=== PATIENT | female | born 1965 | race Caucasian/White ===

== ENCOUNTER → 2020-08-13 13:47 | Outpatient (CLI) | payer BC, SELFPAY ==
[2020-08-13 15:13] LABS: Absolute Neutrophil Count 4.9 X10^3/uL (2.0-7.7); Basophil# 0.04 X10^3/uL; Basophil% 0.4 % (0-1); Eosinophil# 0.14 X10^3/uL; Eosinophils% 1.5 % (0-5); Hematocrit 44.2 % (37-47); Hemoglobin 14.4 g/dL (12.0-15.0); Lymphocyte % 37.4 % (19-41); Mean Corp Hgb Conc 32.6 g/dL (32-36); Mean Corpuscular Volume 95.1 fL (81-99); Monocyte# 0.65 X10^3/uL; Monocyte% 7.1 % (0-10); NRBC Flagged by Analyzer 0 % (0-5); Neutrophil # 4.85 X10^3/uL (2.7-7.7); Neutrophil % 53.4 % (47-70); POSITIVE MORPHOLOGY YES; Platelet Count 234 K/mm3 (150-450); RBC Distribution Width CV 12.3 % (11.6-14.6); RBC Distribution Width SD 42.8 fl (35.1-43.9); Red Blood Count 4.65 M/mm3 (4.2-5.4); White Blood Count 9.1 K/mm3 (4.4-11.0)
[2020-08-13 15:15] LABS: Differential Indicated SCAN CRITERIA MET
[2020-08-13 15:43] LABS: Platelet Estimate ADEQUATE (ADEQ); Reactive Lymphocyte 1+; Red Cell Morphology NORM C+C NORMAL (NORM C&C)
[2020-08-13 16:10] LABS: AST(SGOT) 26 U/L (15-37); Alanine Aminotransfer ALT/SGPT 24 U/L (13-56); Albumin, Serum 4.1 g/dL (3.2-5.0); Alkaline Phosphatase 110 U/L (45-117); Anion Gap 7 (5-15); BUN 18 mg/dL (7-18); BUN/Creat Ratio 22.4 RATIO (10-20); Bilirubin, Direct 0.26 mg/dL (0.00-0.30); Calcium,Total 9.4 mg/dL (8.5-10.1); Chloride 103 mmol/L (98-107); EST Glomerular Filtration Rate 78 mL/min (>60); Est Glom Filt Rate - Afr Amer 95 mL/min (>60); Globulin 3.7 g/dL (2.2-4.2); Glucose 93 mg/dL (74-106); Protein, Total 7.8 g/dL (6.4-8.2); Sodium Level 137 mmol/L (136-145)
[2020-08-14 09:08] LABS: Hepatitis B Surface Antibody Non-Reactive; Hepatitis B Surface Antigen Non-Reactive (Nonreactive); Hepatitis C Antibody Non-Reactive (Nonreactive)
[2020-08-17 04:10] LABS: QNTFERON TB Mitogen Value > 10.00 IU/mL (.); QNTFERON TB Nil Value 0.02 IU/mL (.); QNTFERON TB1+ Ag Value 0.04 IU/mL (.); QNTFERON TB2+ Ag Value 0.02 IU/mL (.)
[2020-08-17 13:50] LABS: Hepatitis B Core Ab Total Negative (Negative); QNTIFERON TB Positive Criteria Negative (Negative)
== END ==
PROVIDERS: PCP Family Medicine; Referring Provider Dermatology; Visit Provider Dermatology
DX: L40.0 Psoriasis vulgaris (principal)
CPT/HCPCS: 36415; 80048; 80076; 85025; 86480; 86704; 86706; 86803; 87340

== ENCOUNTER 2021-08-06 14:24 | Outpatient (CLI) | payer BC, SELFPAY ==
[2021-08-06 17:42] LABS: Absolute Lymphocyte Count 3.59 X10^3/uL (0.83-4.51); Absolute Neutrophil Count 4.5 X10^3/uL (2.0-7.7); Basophil# 0.06 X10^3/uL; Basophil% 0.6 % (0-1); Eosinophil# 0.18 X10^3/uL; Eosinophils% 1.9 % (0-5); Hematocrit 43.9 % (37-47); Hemoglobin 14.4 g/dL (12.0-15.0); Lymphocyte # 3.59 X10^3/ul (0.83-4.51); Mean Corp Hgb Conc 32.8 g/dL (32-36); Mean Corpuscular Hgb 31.9 pg (27.0-32.0); Mean Corpuscular Volume 97.1 fL (81-99); Mean Platelet Vol. 10.7 fl (6.2-12.0); Monocyte# 1.09 X10^3/uL; Monocyte% 11.5 % (0-10); NRBC Flagged by Analyzer 0 % (0-5); Neutrophil % 47.8 % (47-70); POSITIVE MORPHOLOGY YES; Platelet Count 243 K/mm3 (150-450); RBC Distribution Width CV 12.5 % (11.6-14.6); RBC Distribution Width SD 44.7 fl (35.1-43.9); Red Blood Count 4.52 M/mm3 (4.2-5.4); White Blood Count 9.4 K/mm3 (4.4-11.0)
[2021-08-06 18:09] LABS: Differential Indicated SCAN CRITERIA MET
[2021-08-06 18:10] LABS: Anisocytosis 1+; Atypical Lymphocyte 2+ %; Hypochromasia RARE; Platelet Estimate ADEQUATE (ADEQ); Red Cell Morphology N CHROM NORMAL (NORM C&C)
[2021-08-06 18:11] LABS: Macrocytosis 1+; Ovalocyte RARE
[2021-08-06 18:32] LABS: AST(SGOT) 24 U/L (15-37); Alanine Aminotransfer ALT/SGPT 31 U/L (13-56); Albumin, Serum 3.9 g/dL (3.2-5.0); Alkaline Phosphatase 112 U/L (45-117); Anion Gap 7 (5-15); BUN 14 mg/dL (7-18); BUN/Creat Ratio 19.5 RATIO (10-20); Calcium,Total 9.4 mg/dL (8.5-10.1); Chloride 106 mmol/L (98-107); Creatinine, Serum 0.72 mg/dL (0.55-1.02); EST Glomerular Filtration Rate 89 mL/min (>60); Est Glom Filt Rate - Afr Amer 107 mL/min (>60); Glucose 89 mg/dL (74-106); Protein, Total 7.9 g/dL (6.4-8.2); Sodium Level 138 mmol/L (136-145)
[2021-08-07 13:27] LABS: Pathologist Review Reviewed
[2021-08-09 06:11] LABS: QNTFERON TB Mitogen Value > 10.00 IU/mL (.); QNTFERON TB Nil Value 0 IU/mL (.); QNTFERON TB1+ Ag Value 0 IU/mL (.); QNTFERON TB2+ Ag Value 0 IU/mL (.)
[2021-08-09 10:02] LABS: QNTIFERON TB Positive Criteria Negative (Negative)
== END 2021-08-06 23:59 | disposition short-term general hospital (02) ==
LOC: MTLAB 14:25
PROVIDERS: PCP Family Medicine; Referring Provider Dermatology; Visit Provider Dermatology
DX: L40.0 Psoriasis vulgaris (principal); Z79.899 Other long term (current) drug therapy
CPT/HCPCS: 36415; 80053; 85025; 86480

== ENCOUNTER 2022-08-20 15:16 | Emergency (ER) | payer BC, SELFPAY ==
[2022-08-20 15:17] VITALS: BP 155/140; PULSE 72; RESP 20; TEMP 36.9; O2SAT 97; BMI 29.2
--- NOTE | 2022-08-20 15:42 | CT_ITS ---
STUDY: CT ABDOMEN AND PELVIS WITHOUT CONTRAST REASON FOR EXAM: Female, 57 years old. Kidney Stone RADIATION DOSAGE (If Supplied By Facility): CTDIvol = ( 8.68 ) mGy, DLP = ( 409.83 ) mGycm TECHNIQUE: Transaxial images were obtained from the dome of the diaphragm to the symphysis pubis without oral contrast, and without intravenous contrast. Sagittal and coronal images were reconstructed. Individualized dose optimization techniques were used for this CT. COMPARISON: None. FINDINGS: Minor atelectasis within the dependent portion of the lungs.. The visualized portions of the heart are within normal limits. Normal liver. Normal gallbladder and extrahepatic biliary system. Normal spleen. Normal pancreas. Normal right adrenal. Small hypoattenuated left adrenal most likely benign.. Tiny nonobstructing right renal calculus without evidence for hydronephrosis or mass. Nonobstructing left renal calculi without evidence for hydronephrosis or mass The ureters are incompletely visualized in their entirety however there is no definite stones identified within the visualized portions of the ureters. Possibility of a very tiny nonobstructing calculus cannot be entirely excluded. If strong clinical suspicion for obstructive uropathy repeat scan with contrast would be useful for assessment Normal visualized stomach. Mild ileus with diffuse fecal retention in the colon.. No evidence for acute appendicitis. Atherosclerotic changes of the aorta without evidence for aneurysm. Normal inferior vena cava. Normal retroperitoneum. Incompletely distended thick walled bladder likely of no significance. Small calcified intrauterine fibroid Normal abdominal wall. Lumbar spine demonstrates degenerative change CT/Abdomen/Pelvis without Cont IMPRESSION: Bilateral nephrolithiasis without evidence for renal obstruction or definitive evidence for ureteral calculus.. Electronically Signed: Kehinde Murphy MD at 16:47 EST ,
--- NOTE | 2022-08-20 15:42 | ED.VIS.FEGU ---
HPI HPI - Female History of Present Illness Chief Complaint: Flank Pain Narrative Narrative: 57-year-old female presented with left flank pain. Patient states he has a history of kidney stones just she believes she is seeing Dr. Laguna in the past. She does have history of obstructive stones and needed lithotripsy and stenting. Patient states pain started last evening at about 1030. She took Tylenol and used a heating pad and her pain is not resolved. Patient states that she was at urgent care today and they checked a urinalysis and did not note any blood or infection in her urine. She was given Toradol while she was there and she states her pain is very much improved on arrival. Patient denies any urinary complaints. No fevers PFSH PFSH Medical History (Updated 08/20/22 @ 17:[address] Avila Cardozo DO) Hx of renal calculi Home Medications hydrocodone-acetaminophen 5-325mg 5mg-325mg 1 tab PO Q4H PRN PRN Pain 3 days #12 TABLETS 08/20/22 [Rx Last Taken Unknown] ondansetron 4 mg disintegrating tablet 4 mg PO Q8H PRN PRN Nausea #14 tabs 08/20/22 [Rx Last Taken Unknown] tamsulosin 0.4 mg capsule (Flomax) 0.4 mg PO DAILY 08/20/22 [History Last Taken Unknown] Allergy/AdvReac Type Severity Reaction Status Date / Time No Known Allergies Allergy Verified 08/20/22 15:18 Social History Smoking Status: Never smoker ROS ROS ED Review of Systems ROS Unobtainable: Denies due to encephalopathy Constitutional Constitutional ED: Denies chills or fever(s) Eyes Eyes: Denies change in vision ENT ENT ED: Denies rhinorrhea or sore throat Cardiovascular Cardiovascular: Denies chest pain or palpitations Respiratory/Chest Respiratory/Chest: Denies cough or dyspnea Gastrointestinal Gastrointestinal: Reports nausea and other Details: Left flank pain Genitourinary Genitourinary ED: Denies dysuria or hematuria Integumentary Denies abscess or Abrasions Neurologic Neurologic: Denies headache(s) Psychiatric Psychiatric: Denies anxiety or depression EXAM Physical Exam Const Vital Signs: 08/20/22 15:17 08/20/22 16:52 Temperature 98.4 F Temperature Source Temporal Pulse Rate 72 71 Respiratory Rate 20 H 18 Blood Pressure 155/140 H 151/67 H Blood Pressure Mean 145 95 Pulse Ox 97 94 Oxygen Delivery Method Room Air Room Air Positive well nourished General Appearance ED: JENNIFER SMART Reports moist mucous membranes Eyes PERRL and EOMs intact bilaterally Neck no lymphadenopathy Resp normal respiratory effort Auscultation: Negative for rales, rhonchi or wheezes Cardio regular rate and regular rhythm GI normal to inspection, nondistended, normoactive bowel sounds Back/Spine General Back: CVA tenderness Neuro oriented x3 and CN's II-XII intact bilaterally Sensorium / Orientation: alert and oriented to person Motor Exam: strength 5/5 throughout Psych mental status grossly normal Skin no rashes or lesions noted MDM MDM MDM Narrative Medical decision making narrative: Patient seen and evaluated on arrival for left flank pain. She states she had a urinalysis performed at the urgent care prior to coming here which showed no occult blood or evidence of infection. I will need to repeat this as I do not have the results of this test. CBC will be obtained to check for blood cell count, H&H, didfferental. BMP to assess renal function and electrolytes. Patient declines analgesia at this time I did membership counselor her if she needs something more to please pressure quality. She states the Toradol is helping currently. She denies nausea at this time. Will obtain CT without contrast to assess for kidney stone CBC shows no evidence of leukocytosis. Hemoglobin hematocrit are stable. Platelets are normal. Renal function electrolytes appear to be within normal limits. Urinalysis negative for infection and is occult blood negative. Patient was initially medicated with Toradol and after pain returned she was given morphine. CT abdomen pelvis without contrast shows bilateral nonobstructing kidney stones. There is no evidence of struct ureteral stone. I spoke with Dr. Laguna who is on-call for urology. He did feel as if he could follow her out as an outpatient. Patient prescribed Greene and Zofran for home. Return precautions discussed. Impression: 1. Left flank pain 2. History of kidney stones 3. Nausea Lab Data Attestation: I reviewed the patient's lab results. Labs: Laboratory Results - last 24 hr 08/20/22 08/20/22 08/20/22 15:43 15:43 17:00 WBC 9.3 RBC 4.23 Hgb 13.8 Hct 41.2 MCV 97.4 MCH 32.6 H MCHC 33.5 RDW Std Deviation 43.8 RDW Coeff of Javier 12.2 Plt Count 216 MPV 9.9 Immature Gran % (Auto) 0.200 Neut % (Auto) 56.5 Lymph % (Auto) 34.2 [place] % (Auto) 7.9 Eos % (Auto) 0.6 Baso % (Auto) 0.6 Absolute Neuts (auto) 5.2 Absolute Lymphs (auto) 3.16 Nucleated RBC % 0 Differential Comment SCANNED Reactive Lymphocytes RARE Sodium 140 Potassium 3.8 Chloride 106 Carbon Dioxide 26.0 Anion Gap 8 BUN 10 Creatinine 0.75 Estim Creat Clear Calc 63.88 Est GFR (MDRD) Af Amer 101 Est GFR (MDRD) Non-Af 84 BUN/Creatinine Ratio 13.3 Glucose 105 Calcium 9.2 Urine Color Yellow Urine Clarity Clear Urine pH 7.0 Ur Specific [place] 1.010 Urine Protein 30 H Urine Glucose (UA) Normal Urine Ketones 5 H Urine Occult Blood Negative Urine Nitrite Negative Urine Bilirubin Negative Urine Urobilinogen 1 H Ur Leukocyte Esterase 25 H Urine RBC 0 SEEN Urine WBC 0 SEEN Ur Squamous Epith Cells 0 SEEN Urine Bacteria 0 SEEN Urine Mucus 0 SEEN Radiography Diagnostic Testing: Clinical Impression(s) from Imaging Studies Abdomen/Pelvis CT 08/20/22 15:42 IMPRESSION: Bilateral nephrolithiasis without evidence for renal obstruction or definitive evidence for ureteral calculus.. Electronically Signed: Kehinde Murphy MD at 16:47 EST Reading Location ID and State: [address] [place] [address] , Service support , Discharge Plan Triage Chief Complaint: Flank Pain ED Provider: Avila Cardozo Dx/Rx/DC Orders Instructions: Hematuria: Possible Causes, ED Kidney Stone, Passed Prescriptions: New ondansetron 4 mg tablet,disintegrating 4 mg PO Q8H PRN PRN (Reason: Nausea) Qty: 14 0RF hydrocodone-acetaminophen 5-325 mg tablet 1 tab PO Q4H PRN PRN (Reason: Pain) 3 Days Qty: 12 0RF No Action tamsulosin [Flomax] 0.4 mg Capsule 0.4 mg PO DAILY Primary Care Provider: Nadeem Sommer Referrals: Nadeem Sommer DO [Primary Care Provider] - Rinku Laguna MD [Med Staff - Active Staff] - 3-5 Days Disposition Disposition: Home, Self Care
[2022-08-20 16:05] LABS: Absolute Lymphocyte Count 3.16 X10^3/uL (0.83-4.51); Absolute Neutrophil Count 5.2 X10^3/uL (2.0-7.7); Basophil# 0.06 X10^3/uL; Basophil% 0.6 % (0-1); Eosinophil# 0.06 X10^3/uL; Eosinophils% 0.6 % (0-5); Hematocrit 41.2 % (37-47); Hemoglobin 13.8 g/dL (12.0-15.0); Lymphocyte # 3.16 X10^3/ul (0.83-4.51); Lymphocyte % 34.2 % (19-41); Mean Corp Hgb Conc 33.5 g/dL (32-36); Mean Corpuscular Hgb 32.6 pg (27.0-32.0); Mean Corpuscular Volume 97.4 fL (81-99); Mean Platelet Vol. 9.9 fl (6.2-12.0); Monocyte# 0.73 X10^3/uL; Monocyte% 7.9 % (0-10); NRBC Flagged by Analyzer 0 % (0-5); Neutrophil # 5.22 X10^3/uL (2.7-7.7); Neutrophil % 56.5 % (47-70); POSITIVE MORPHOLOGY YES; Platelet Count 216 K/mm3 (150-450); RBC Distribution Width CV 12.2 % (11.6-14.6); RBC Distribution Width SD 43.8 fl (35.1-43.9); Red Blood Count 4.23 M/mm3 (4.2-5.4); White Blood Count 9.3 K/mm3 (4.4-11.0)
[2022-08-20 16:10] LABS: Differential Indicated SCAN CRITERIA MET
[2022-08-20 16:21] LABS: Anion Gap 8 (5-15); BUN 10 mg/dL (7-18); BUN/Creat Ratio 13.3 RATIO (10-20); Calcium,Total 9.2 mg/dL (8.5-10.1); Chloride 106 mmol/L (98-107); Creatinine, Serum 0.75 mg/dL (0.55-1.02); EST Glomerular Filtration Rate 84 mL/min (>60); Est Glom Filt Rate - Afr Amer 101 mL/min (>60); Estimated Creatinine Clearance 63.88 ml/min; Glucose 105 mg/dL (74-106); Potassium 3.8 mmol/L (3.5-5.1); Sodium Level 140 mmol/L (136-145)
[2022-08-20] MEDS: Ondansetron 4 MG/2 ML Vial IV (16:49)
[2022-08-20] MEDS: Morphine 4 MG/ML Syringe IV (16:49)
[2022-08-20 16:52] VITALS: BP 151/67; PULSE 71; RESP 18; O2SAT 94
[2022-08-20 17:03] LABS: Differential Comment SCANNED; Reactive Lymphocyte RARE
[2022-08-20 17:13] LABS: Bacteria 0 SEEN /hpf (None Seen); Mucous, Urine 0 SEEN /hpf (<or=2+); Red Blood Cells-Urine 0 SEEN /hpf (0-5); Squamous Epithelial Cells - UA 0 SEEN /hpf (5-10); White Blood Cells 0 SEEN /hpf (0-5)
[2022-08-20 17:20] LABS: Color, Urine Yellow (Yellow); Glucose, Dipstick Normal (Normal); Ketone-Dipstick 5 mg/dl (Negative); Leukocyte Esterase-Dipstick 25 /ul (Negative); Nitrite-Dipstick Negative (Negative); Occult Blood-Urine Negative /ul (Negative); Protein-Dipstick 30 mg/dl (Negative); Urine Bilirubin Dipstick Negative (Negative); Urine Clarity Clear (Clear); Urine Urobilinogen 1 mg/dl (Normal)
[2022-08-20 17:58] VITALS: BP 152/68; PULSE 79; RESP 15; O2SAT 99
[2022-08-20] MEDS: HYDROcodone Bitartrate/Apap 5/325 Tablet PO (18:01)
== END 2022-08-20 18:03 | disposition home or self-care (01) ==
PROVIDERS: Emergency Provider Student in an Organized Health Care Education/Training Program; PCP Family Medicine; Visit Provider Student in an Organized Health Care Education/Training Program
DX: R11.0 Nausea (principal); N20.0 Calculus of kidney
CPT/HCPCS: 74176; 80048; 81001; 85025; 96374; 96375; 99284; A4216; J2405

== ENCOUNTER 2023-09-17 11:53 | Day surgery (SDC) | payer BC, SELFPAY ==
[2023-09-17] VITALS (7 sets, daily range): BP systolic 127–188; BP diastolic 61–108; PULSE 59–104; RESP 14–18; TEMP 36.2–36.8; O2SAT 90–97; BMI 25.9
[2023-09-17] MEDS: Lactated Ringers 1,000 ML 15 ML IV (12:21)
[2023-09-17] MEDS: Cefazolin 2 GM in 0.9% Normal Saline (100mL Bag) 100 ML IV (13:43)
--- NOTE | 2023-09-17 14:02 | DCINST_ITS ---
Discharge Instructions Diet Discharge Diet: No restrictions Activity Discharge Activity: Return to Normal Activity Dressing / Incision Call your doctor if you observe: Fever of 101 or Higher, Inability to urinate and Inability to have a bowel movement Follow Up Care Please Follow Up With: Isabella Greene MD When: The office will call her to make follow-up arrangements Test Results: Test results from this visit will be discussed in further detail at your follow- up appointment, if applicable. Discharge Plan Admission Attending Provider: Isabella Greene Primary Care Provider: Nadeem Sommer Discharge Orders/Prescriptions Prescriptions: New oxycodone-acetaminophen [Percocet] 5-325 mg tablet 1 tab PO Q8H PRN (Reason: pain) 3 Days Qty: 10 0RF cephalexin [cephalexin] 500 mg capsule 500 mg PO Q12 3 Days Qty: 6 0RF phenazopyridine [Pyridium] 200 mg tablet 200 mg PO TID PRN PRN (Reason: Bladder Spasms) 7 Days Qty: 30 0RF Referrals / Follow Up: Nadeem Sommer DO [Primary Care Provider] - Disposition Disposition (needs filled in before D/C Order can be placed): Home, Self Care
--- NOTE | 2023-09-17 14:05 | PCM.OPRPT ---
Report of Operation Date of Procedure: 09/17/23 Pre-Operative Diagnosis: left renal stone Post-Operative Diagnosis: same Surgery/Procedure Performed:: cystoscopy with left ureteral stent insertion, left renal extracorporeal shockwave lithotripsy Surgeon: Isabella Greene Type of Anesthesia: General Specimen's removed: none Description of Procedure: The patient is a 58-year-old female with a large left renal stone who presents for surgical intervention. Informed consent was obtained. The patient was taken to the operating room and placed on the operating room table. Anesthesia monitored the head, neck, airway, IV access and vital signs throughout the case. Once anesthesia was appropriately administered, the patient was placed into dorsolithotomy position and was prepped and draped in usual sterile fashion. The cystoscope was inserted through the urethra under direct visualization into the urinary bladder. On visualization of the mucosa, there was no evidence of mass, erythema or ulceration. The left ureteral orifice was identified and intubated with a 0.035 Glidewire. The wire was extended into the renal pelvis and a 6 Vietnamese 20 cm JJ stent was placed over the wire with good positioning in the renal pelvis as well as the urinary bladder. The bladder was then emptied and the cystoscope was removed. She was repositioned on the table. The stone was easily identified and 3000 shocks were applied to the stone. It appeared to be well fragmented at the conclusion of the case. She was then awakened and taken to the recovery room in good condition. There were no complications during this procedure. Grafts/Implants Used: 6 x 20 JJ stent Complications none Admit VTE Documentation VTE Present on Admission: Yes VTE Mechan Device Prophylaxis: SCD's VTE Pharm Prophylaxis ordered?: No Reason prophylaxis not ordered:: Treatment Not Indicated
== END 2023-09-17 16:43 | disposition home or self-care (01) ==
LOC: SDC 11:58 → AC 11:59
PROVIDERS: PCP Family Medicine; Referring Provider Urology; Visit Provider Urology
PROC: (CPT 50590; principal; 2023-09-17 13:15)
DX: N20.0 Calculus of kidney (principal); J45.909 Unspecified asthma, uncomplicated
CPT/HCPCS: 50590; 52332; 00873; J7120; C2625; J2405

== ENCOUNTER → 2023-10-02 | Outpatient (CLI) | payer BC, SELFPAY ==
--- NOTE | 2023-10-02 14:40 | RAD_ITS ---
STUDY: X-RAY - ABDOMEN/PELVIS REASON FOR EXAM: Female, 58 years old. Flank pain TECHNIQUE: Two AP supine views of the abdomen and pelvis. COMPARISON: None. FINDINGS: Normal visualized lung bases. Satisfactory appearance of the left-sided JJ stent. Multiple calcific densities overlying the left kidney including one projecting at the proximal aspect of the JJ stent. No calcifications identified over the right kidney though one could be obscured by overlying bowel gas and stool. There also appear to be subtle calcific densities that are smudged along the distal aspect of the stent inferior to the SI joint. There is a moderate amount of colonic fecal material. There is no demonstrated free abdominal air. The visualized liver, spleen and kidneys are grossly normal in size and morphology. Normal soft tissue structures. Normal visualized osseous structures. RAD/Abdomen Single View IMPRESSION: Left-sided nephrolithiasis and possible ureterolithiasis along the distal aspect of the JJ stent. No acute findings Retained stool Electronically Signed: Aba Noble MD at 15:12 EDT ,
== END | disposition home or self-care (01) ==
LOC: MTRAD 14:38
PROVIDERS: PCP Family Medicine; Referring Provider Urology; Visit Provider Urology
DX: N39.0 Urinary tract infection, site not specified (principal)
CPT/HCPCS: 74018

== ENCOUNTER 2023-10-22 11:48 | Day surgery (SDC) | payer BC, SELFPAY ==
[2023-10-22] MEDS: Lactated Ringers 1,000 ML 15 ML IV (12:19)
[2023-10-22 12:20] VITALS: BP 158/70; PULSE 75; RESP 16; TEMP 36.1; O2SAT 95; BMI 25.0
[2023-10-22] MEDS: Cefazolin 2 GM in 0.9% Normal Saline (100mL Bag) 100 ML IV (13:55)
[2023-10-22 14:32] VITALS: BP 158/70; BP 163/89; PULSE 79; RESP 16; TEMP 36.2; O2SAT 95
[2023-10-22 14:35] VITALS: BP 148/78; BP 158/70; PULSE 75; RESP 16; O2SAT 95
--- NOTE | 2023-10-22 14:36 | DCINST_ITS ---
Discharge Instructions Diet Discharge Diet: No restrictions Activity Discharge Activity: Return to Normal Activity May resume sexual activity in: No Restrictions Dressing / Incision Call your doctor if you observe: Fever of 101 or Higher, Inability to urinate and Inability to have a bowel movement Follow Up Care Please Follow Up With: Isabella Greene MD When: the office will call her to make arrangements for follow up and 24hr urinalysis Test Results: Test results from this visit will be discussed in further detail at your follow- up appointment, if applicable. Discharge Plan Admission Attending Provider: Isabella Greene Primary Care Provider: Nadeem Sommer Discharge Orders/Prescriptions Prescriptions: No Action NK Referrals / Follow Up: Nadeem Sommer DO [Primary Care Provider] - Disposition Disposition (needs filled in before D/C Order can be placed): Home, Self Care
--- NOTE | 2023-10-22 14:37 | OP.PCM_ITS ---
Report of Operation Date of Procedure: 10/22/23 Pre-Operative Diagnosis: Left ureteral calculi Post-Operative Diagnosis: Same Surgery/Procedure Performed:: Cystoscopy, left ureteroscopy, stone basket extraction, left ureteral stent removal Surgeon: Isabella Greene Type of Anesthesia: General Specimen's removed: Stone fragments Description of Procedure: The patient is a 58-year-old female who recently underwent a cystoscopy with left ureteral stent insertion and left renal extracorporal shockwave lithotripsy. On postoperative KUB there were stones seen alongside the stent and she now presents for ureteroscopy. Informed consent was obtained. The patient was taken to the operating room and placed on the operating room table. Anesthesia monitored the head, neck, airway, IV access and vital signs throughout the case. Once anesthesia was appropriately administered, the patient was placed into dorsolithotomy position and was prepped and draped in usual sterile fashion. The cystoscope was then inserted through the urethra under direct visualization into the urinary bladder. Immediately visible was a 5 mm stone sitting in the base of the bladder. It was grasped with a grasping forceps and removed. The cystoscope was then reinserted through the urethra and the stent was observed, grasped and removed with a forceps without difficulty. A 0.035 Glidewire was then passed through the left ureteral orifice into the renal pelvis is seen on fluoroscopy. Using a semirigid ureteroscope, access was obtained to the ureter and a second stone was identified and removed with a stone basket. A flexible ureteroscope was then used over the Glidewire and advanced all the way to the renal pelvis were each calyx was directly visualized. There were no stone fragments identified. The entire length of the ureter was visualized directly with no evidence of erythema, irritation or further foreign body. The decision was made to leave her without a ureteral severino nt. The ureteroscope was removed. The patient was then awakened and taken to the recovery room in good condition. There were no complications during this procedure. Grafts/Implants Used: None Complications None Admit VTE Documentation VTE Present on Admission: Yes VTE Mechan Device Prophylaxis: SCD's VTE Pharm Prophylaxis ordered?: No Reason prophylaxis not ordered:: Treatment Not Indicated
[2023-10-22 14:40] VITALS: BP 152/85; BP 158/70; PULSE 74; RESP 16; O2SAT 93
[2023-10-22 14:46] VITALS: BP 149/77; BP 158/70; PULSE 72; RESP 16; TEMP 36.3; O2SAT 93
[2023-10-22 15:13] VITALS: BP 158/70
== END 2023-10-22 15:21 | disposition home or self-care (01) ==
LOC: SDC 11:48 → AC 11:49
PROVIDERS: PCP Family Medicine; Referring Provider Urology; Visit Provider Urology
PROC: (CPT 52356; principal; 2023-10-22 13:10)
DX: N20.1 Calculus of ureter (principal); Z87.442 Personal history of urinary calculi
CPT/HCPCS: 52310; 00910; 76000; 82360; J7120; J2405